=== PATIENT | female | born 1975 | race Caucasian/White ===

== ENCOUNTER 2018-11-05 16:35 | Inpatient (IN) | payer BC ==
[2018-11-05 18:00] LABS: Absolute Lymphocytes (CBC) 1.1 K/uL (0.7-4.9); Basophils % 0.3 % (0-1.3); Hematocrit 26.9 % (36.0-45.0); RBC Red Blood Cell Count 3.72 M/uL (3.86-4.86)
[2018-11-05 18:21] LABS: Potassium 3.7 mmol/L (3.5-5.1)
[2018-11-05 18:37] LABS: Bilirubin Direct 0.1 mg/dL (0-0.2); Bilirubin Total 0.3 mg/dL (0.2-1.0); Protein, Total 7.2 g/dL (6.4-8.2)
[2018-11-05 18:37] LABS: Urine Bacteria NONE SEEN /HPF (<20); Urine Culture Reflex Order NOT NEEDED; Urine RBC <5 /HPF (NONE SEEN)
[2018-11-05 18:37] LABS: Urine Blood NEGATIVE (NEG); Urine Glucose NEGATIVE (NEG); Urine Protein NEGATIVE (NEG)
--- NOTE | 2018-11-05 19:00 | RAD REPORT ---
EXAM DESCRIPTION: CTAbdomen Pelvis W Contrast - 11/05/2018 6:49 pm CLINICAL HISTORY: Abdominal pain. ABD PAIN COMPARISON: No comparisons TECHNIQUE: Biphasic CT imaging of the abdomen and pelvis was performed with 100 ml non-ionic IV cont rast. All CT scans are performed using dose optimization technique as appropriate and may include automated exposure control or mA/KV adjustment according to patient size. FINDINGS: The lung bases are clear. The liver, spleen, pancreas, adrenal glands and kidneys are within normal limits. No bowel obstruction, free air, free fluid or abscess. The appendix is dilated to 11 mm with surroun ding inflammation compatible with acute appendicitis. No evidence of significant lymphadenopathy. No suspicious bony findings. IMPRESSION: Acute appendicitis.
--- NOTE | 2018-11-05 19:03 | RAD REPORT ---
EXAM DESCRIPTION: US - Pelvis Complete - 11/05/2018 6:39 pm CLINICAL HISTORY: ABD PAIN Pelvic pain. COMPARISON: No comparisons FINDINGS: The uterus is normal in size, shape and echotexture. The uterus measures 12.0 x 6.0 x 4.9 cm. The endometrial stripe measures 12 mm, normal. Both ovaries are normal in size, shape and echotexture. The right ovary measures 3.0 x 2.1 x 1.4 cm. The left ovary measures 3.0 x 3.3 x 2.1 cm. No ovarian or parovarian lesions. No adnexal masses. Normal Doppler blood flow was demonstrated to both ovaries. No significant pelvic ascites. IMPRESSION: Unremarkable study.
--- NOTE | 2018-11-05 19:19 | ER ---
Nurse's Notes [facility] Name: Alexia Lynch Age: 43 yrs Sex: Female : 1975 Arrival Date: 11/05/2018 Time: 16:36 Bed 14 Private MD: Angus Wallace Diagnosis: Acute appendicitis Presentation: 11/05 16:55 Presenting complaint: Patient states: Lower abd pain and nausea for several days, sg nurse was supposed to get the order to infuse iron while im here because im not absorbing the iron tablets that Im taking at home. Reports nausea, denies vomiting. Transition of care: patient was not received from another setting of care. Onset of symptoms was November 05, 2018. Risk Assessment: Do you want to hurt yourself or someone else? Patient reports no desire to harm self or others. Initial Sepsis Screen: Does the patient meet any 2 criteria? No. Patient's initial sepsis screen is negative. Does the patient have a suspected source of infection? Yes: Acute abdominal pain. Care prior to arrival: None. 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 - Social history:: Smoking status: Patient/guardian denies using tobacco. - Ebola Screening: : Patient negative for fever greater than or equal to 101.5 degrees Fahrenheit, and additional compatible Ebola Virus Disease symptoms Patient denies exposure to infectious person Patient denies travel to an Ebola-affected area in the 21 days before illness onset No symptoms or risks identified at this time. Screenin:45 Abuse screen: Denies threats or abuse. Nutritional screening: No deficits noted. rb1 Tuberculosis screening: No symptoms or risk factors identified. Fall Risk None identified. Assessment: 16:45 General: Appears uncomfortable, Behavior is calm, cooperative, Reports chills for fever rb1 for 12-24 hours. Pain: Complains of pain in right lower quadrant Pain radiates to right leg Pain currently is 10 out of 10 on a pain scale. Quality of pain is described as sharp, shooting, Intermittent. Neuro: Level of Consciousness is awake, alert, obeys commands, Oriented to person, place, time, situation. Cardiovascular: Capillary refill < 3 seconds is brisk in bilateral fingers. Respiratory: Airway is patent Respiratory effort is even, unlabored, Respiratory pattern is regular, symmetrical. GI: Bowel sounds present X 4 quads. Abd is soft Abdomen is tender to palpation in right lower quadrant Guarding noted Reports nausea, vomiting. : No signs and/or symptoms were reported regarding the genitourinary system. Derm: Skin is pink, warm \T\ dry. Musculoskeletal: Range of motion: intact in all extremities. 18:00 Reassessment: Patient appears in no apparent distress at this time. No changes from rb1 previously documented assessment. 18:44 Reassessment: Patient appears in no apparent distress at this time. Patient and/or rb1 family updated on plan of care and expected duration. Pain level reassessed. Patient is alert, oriented x 3, equal unlabored respirations, skin warm/dry/pink. 19:15 Reassessment: Patient appears in no apparent distress at this time. Patient and/or jb4 family updated on plan of care and expected duration. Pain level reassessed. Patient is alert, oriented x 3, equal unlabored respirations, skin warm/dry/pink. 20:00 Reassessment: Patient appears in no apparent distress at this time. Patient and/or jb4 family updated on plan of care and expected duration. Pain level reassessed. Patient is alert, oriented x 3, equal unlabored respirations, skin warm/dry/pink. Pt transferred to surgery. Vital Signs: 16:54 Resp 20; Pulse Ox 99% on R/A; Weight 63.5 kg; Height 5 ft. 6 in. (167.64 cm); sg 16:54 BP 115 / 71; Pulse 84; Resp 17; Pulse Ox 100% on R/A; Pain 9/10; rb1 18:00 BP 100 / 58; Pulse 68; Resp 16; Pulse Ox 100% on R/A; rb1 18:44 BP 109 / 77; Pulse 82; Resp 17; Pulse Ox 100% on R/A; Pain 8/10; rb1 20:00 BP 94 / 60; Pulse 91; Resp 18; Pulse Ox 100% on R/A; jb4 16:54 Body Mass Index 22.60 (63.50 kg, 167.64 cm) ED Course: 16:36 Patient arrived in ED. as 16:39 Angus Wallace MD is Private Physician. as 16:45 Patient has correct armband on for positive identification. Bed in low position. Call rb1 light in reach. Side rails up X 1. Pulse ox on. NIBP on. 16:54 Arm band placed on. sg 16:57 Triage completed. sg 17:04 Joan Nolasco, RN is Primary Nurse. rb1 17:09 Ralf Silverman MD is Attending Physician. gs 17:44 Initial lab(s) drawn, by me, sent to lab. Inserted saline lock: 20 gauge in right dh3 antecubital area, using aseptic technique. Blood collected. 17:50 Urine collected: clean catch specimen, clear. dh3 18:43 US Pelvis Complete In Process Unspecified. EDMS 18:48 CT completed. Patient tolerated procedure well. Patient moved to CT via wheelchair. co Patient moved back from CT. 19:00 CT Abd/Pelvis - IV Contrast Only In Process Unspecified. EDMS 19:00 Report given to DELTA Pena. rb1 19:18 Davon Jorge MD is Hospitalizing Provider. gs 20:00 No provider procedures requiring assistance completed. Patient admitted, IV remains in jb4 place. 20:08 Primary Nurse role handed off by oJan Nolasco, DELTA jb4 20:08 Dainel Argueta, RN is Primary Nurse. jb4 Administered Medications: 19:39 Drug: TORadol - Ketorolac 15 mg Route: IVP; Site: right antecubital; jb4 20:00 Follow up: Response: No adverse reaction; Pain is decreased jb4 19:40 Drug: cefOXitin 1 grams {Note: Given slow IVP per pharmacy protocol.} Route: IVPB; jb4 Infused Over: 30 mins; Site: right antecubital; 19:45 Follow up: Response: No adverse reaction; IV Status: Completed infusion; IV Intake: [id number] Intake: 19:45 IV: 10ml; Total: 10ml. jb4 Outcome: 19:18 Decision to Hospitalize by Provider. gs 20:00 Admitted to OR accompanied by nurse, via stretcher, with chart. jb4 20:00 Condition: stable 20:00 Discharge instructions given to patient, Instructed on the need for admit, Demonstrated understanding of instructions. 20:08 Patient left the ED. jb4 Signatures: Dispatcher [employer] EDMS Chapo Childress, Arlen Rust RN, Rebecca, RN RN rb1 Daniel Argueta RN RN jb4 [facility] Gresham [facility] Ralf Silverman MD MD
--- NOTE | 2018-11-05 19:19 | EDPHYS ---
Physician Documentation [facility] Name: Alexia Lynch Age: 43 yrs Sex: Female : 1975 Arrival Date: 11/05/2018 Time: 16:36 Bed 14 Private MD: Angus Wallace ED Physician Ralf Silverman HPI: 11/05 19:09 This 43 yrs old Female presents to ER via Ambulatory with complaints of gs Abdominal Pain. 19:09 The patient presents with abdominal pain in the lower abdomen. Onset: The gs symptoms/episode began/occurred gradually, this morning. Associated signs and symptoms: Pertinent positives: nausea. The symptoms are described as crampy, sharp. Modifying factors: the symptoms are aggravated by nothing. Severity of pain: At its worst the pain was severe in the emergency department the pain has improved moderately. The patient has experienced similar episodes in the past, a few times. 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 - Social history:: Smoking status: Patient/guardian denies using tobacco. - Ebola Screening: : Patient negative for fever greater than or equal to 101.5 degrees Fahrenheit, and additional compatible Ebola Virus Disease symptoms Patient denies exposure to infectious person Patient denies travel to an Ebola-affected area in the 21 days before illness onset No symptoms or risks identified at this time. ROS: 19:09 All other systems are negative. gs Exam: 19:09 Head/Face: Normocephalic, atraumatic. Eyes: Pupils equal round and reactive to light, gs extra-ocular motions intact. Lids and lashes normal. Conjunctiva and sclera are non-icteric and not injected. Cornea within normal limits. Periorbital areas with no swelling, redness, or edema. ENT: Nares patent. No nasal discharge, no septal abnormalities noted. Tympanic membranes are normal and external auditory canals are clear. Oropharynx with no redness, swelling, or masses, exudates, or evidence of obstruction, uvula midline. Mucous membranes moist. Neck: Trachea midline, no thyromegaly or masses palpated, and no cervical lymphadenopathy. Supple, full range of motion without nuchal rigidity, or vertebral point tenderness. No Meningismus. Chest/axilla: Normal chest wall appearance and motion. Nontender with no deformity. No lesions are appreciated. Cardiovascular: Regular rate and rhythm with a normal S1 and S2. No gallops, murmurs, or rubs. Normal PMI, no JVD. No pulse deficits. Respiratory: Lungs have equal breath sounds bilaterally, clear to auscultation and percussion. No rales, rhonchi or wheezes noted. No increased work of breathing, no retractions or nasal flaring. Back: No spinal tenderness. No costovertebral tenderness. Full range of motion. Skin: Warm, dry with normal turgor. Normal color with no rashes, no lesions, and no evidence of cellulitis. MS/ Extremity: Pulses equal, no cyanosis. Neurovascular intact. Full, normal range of motion. Neuro: Awake and alert, GCS 15, oriented to person, place, time, and situation. Cranial nerves II-XII grossly intact. Motor strength 5/5 in all extremities. Sensory grossly intact. Cerebellar exam normal. Normal gait. 19:09 Constitutional: The patient appears alert, awake. 19:09 Abdomen/GI: Palpation: moderate abdominal tenderness, in the right lower quadrant, rebound tenderness, is not appreciated. Vital Signs: 16:54 Resp 20; Pulse Ox 99% on R/A; Weight 63.5 kg; Height 5 ft. 6 in. (167.64 cm); sg 16:54 BP 115 / 71; Pulse 84; Resp 17; Pulse Ox 100% on R/A; Pain 9/10; rb1 18:00 BP 100 / 58; Pulse 68; Resp 16; Pulse Ox 100% on R/A; rb1 18:44 BP 109 / 77; Pulse 82; Resp 17; Pulse Ox 100% on R/A; Pain 8/10; rb1 20:00 BP 94 / 60; Pulse 91; Resp 18; Pulse Ox 100% on R/A; jb4 16:54 Body Mass Index 22.60 (63.50 kg, 167.64 cm) sg MDM: 17:57 Patient medically screened. gs 19:09 Differential diagnosis: appendicitis, pancreatitis, Ureterolithiasis, urinary tract gs infection, OVARY TORSION. Data reviewed: vital signs, nurses notes, lab test result(s), radiologic studies. Response to treatment: the patient's symptoms have markedly improved after treatment, and as a result, I will discharge patient. 19:17 Counseling: I had a detailed discussion with the patient and/or guardian regarding: the gs historical points, exam findings, and any diagnostic results supporting the discharge/admit diagnosis, the need for further work-up and treatment in the hospital. Physician consultation: Davon Jorge MD. 11/05 17:14 Order name: CBC with Diff; Complete Time: 18:44 11/05 17:14 Order name: Basic Metabolic Panel; Complete Time: 18:44 11/05 17:58 Order name: Urine Microscopic Only; Complete Time: 18:44 11/05 17:58 Order name: Hepatic Function; Complete Time: 18:44 11/05 17:58 Order name: Lipase; Complete Time: 18:44 11/05 18:14 Order name: Urine Dipstick--Ancillary (enter results); Complete Time: 18:44 ar5 11/05 17:58 Order name: Urine Test (obtain specimen); Complete Time: 19:19 11/05 17:58 Order name: Urine Dipstick-Ancillary (obtain specimen); Complete Time: 19:19 11/05 18:02 Order name: US Pelvis Complete; Complete Time: 19:18 11/05 18:02 Order name: CT Abd/Pelvis - IV Contrast Only; Complete Time: 19:18 11/05 18:14 Order name: Urine --Ancillary (enter results); Complete Time: 18:44 ar5 Administered Medications: 19:39 Drug: TORadol - Ketorolac 15 mg Route: IVP; Site: right antecubital; jb4 20:00 Follow up: Response: No adverse reaction; Pain is decreased jb4 19:40 Drug: cefOXitin 1 grams {Note: Given slow IVP per pharmacy protocol.} Route: IVPB; jb4 Infused Over: 30 mins; Site: right antecubital; 19:45 Follow up: Response: No adverse reaction; IV Status: Completed infusion; IV Intake: 13pwzh3 Disposition: 11/05/18 19:18 Hospitalization ordered by Davon Jorge for Inpatient Admission. Preliminary diagnosis is Acute appendicitis. - Bed requested for Telemetry/MedSurg (Inpatient). - Status is Inpatient Admission. jb4 - Condition is Stable. - Problem is new. - Symptoms have improved. UTI on Admission? No Signatures: Dispatcher [employer] EDKY Sravanthi Evans RN RN Chapo Childress RN DELTA Daniel Argueta RN RN [facility] Ralf Silverman MD MD Corrections: (The following items were deleted from the chart) 19:28 19:18 Hospitalization Ordered by Davon Jorge MD for Inpatient Admission. Preliminary diagnosis is Acute appendicitis. Bed requested for Telemetry/MedSurg (Inpatient). Status is Inpatient Admission. Condition is Stable. Problem is new. Symptoms have improved. UTI on Admission? No. gs 20:08 19:28 11/05/2018 19:18 Hospitalization Ordered by Davon Jorge MD for Inpatient jb4 Admission. Preliminary diagnosis is Acute appendicitis. Bed requested for Telemetry/MedSurg (Inpatient). Status is Inpatient Admission. Condition is Stable. Problem is new. Symptoms have improved. UTI on Admission? No.
[2018-11-05] MEDS ORDERED: CEFOXITIN/SWI 1gm 1 GM/10 ML SYR ONE (19:26)
[2018-11-05] MEDS ORDERED: KETOROLAC 30 MG/ML INJ ONE ×2 (19:26→20:49)
[2018-11-05] MEDS ORDERED: Ringers Lactate 0 ML IV ONE (19:51)
[2018-11-05] MEDS ORDERED: FENTANYL CITR 100 MCG/2 ML ONE (19:59)
[2018-11-05] MEDS ORDERED: PROPOFOL 200 MG/20 ML VIAL IV ONE (19:59)
[2018-11-05] MEDS ORDERED: ROCURONIUM 50 MG/5 ML VIAL IV ONE (19:59)
[2018-11-05] MEDS ORDERED: LIDOCAINE 2% MPF 5 ML VIAL ONE (20:00)
[2018-11-05] MEDS ORDERED: Ringers Lactate 1,000 ML IV ONE (20:11)
[2018-11-05] MEDS ORDERED: SUCCINYLCHOLINE 20 MG/ML (10 ML) IV ONE (20:11)
[2018-11-05] MEDS ORDERED: NA CIT/CITRIC AC 30 ML ORAL UDC ONE (20:24)
[2018-11-05] MEDS ORDERED: dexAMETHasone 10 MG/ML VIAL ONE (20:49)
[2018-11-05] MEDS ORDERED: ONDANSETRON 4 MG/2 ML VIAL ONE (20:50)
[2018-11-05] MEDS ORDERED: NEOSTIGMINE 1 MG/ML -10 ML VIAL ONE (20:55)
[2018-11-05] MEDS ORDERED: GLYCOPYRROLATE 0.2 MG/ML SYR ONE (20:55)
[2018-11-05] MEDS ORDERED: SODIUM CHLORIDE 0.9% 10ML INJ IV PRN (21:22)
[2018-11-05] MEDS ORDERED: HYDROCODONE/APAP 5/325 MG TAB PO PRN (21:22)
[2018-11-05] MEDS ORDERED: ONDANSETRON 4 MG/2 ML VIAL IV PRN (21:22)
--- NOTE | 2018-11-05 21:28 | P.BOP ---
Preoperative diagnosis: acute appendicitis Postoperative diagnosis: same Primary procedure: Laparoscopic appendectomy Estimated blood loss: <5cc Specimen: harvey Findings: as above Anesthesia: General Complications: None Transferred to: Recovery Room Condition: Good
[2018-11-05 22:38] VITALS: BMI 20.9
[2018-11-06] MEDS ORDERED: CEFOXITIN SODIUM 1 GM/VIAL ONE (00:58)
[2018-11-06] MEDS ORDERED: NA CHLORIDE 0.9% 100 ML ONE ×2 (01:04→05:20)
[2018-11-06] MEDS: CEFOXITIN 1 GM in NA CHLORIDE 0.9% 100 ML IVPB SCH ×2 (01:10→06:00)
[2018-11-06] MEDS: NA CHLORIDE 0.9% 1,000 ML IV SCH ×4 (01:28→18:00)
[2018-11-06] MEDS: MORPHINE 2 MG/ML SYR IV PRN ×2 (01:34→07:40)
[2018-11-06 02:46] LABS: Urine Appearance CLEAR; Urine Bilirubin NEGATIVE (NEG); Urine Blood NEGATIVE (NEG); Urine Color YELLOW; Urine Glucose NEGATIVE (NEG); Urine Protein NEGATIVE (NEG); Urine Specific Gravity >=1.030 (1.005-1.030); Urine Urobilinogen 0.2 mg/dL (0.2-1.0); Urine pH 5.5 (5.0-7.0)
[2018-11-06 02:56] LABS: Urine Microscopic Reflex NO UMIC
--- NOTE | 2018-11-06 05:37 | OP ---
Date of Procedure: 11/05/2018 Surgeon: Davon Jorge MD Preoperative Diagnosis: Acute appendicitis. Postoperative Diagnosis: Acute appendicitis. Procedure: Laparoscopic appendectomy. Estimated Blood Loss: Less than 5 cc. Specimen: Appendix. Anesthesia: General plus local. Drains: None. Indications: This is the case of a 43-year-old patient, comes to us with acute appendicitis. Fully explained the benefits, alternatives, and risks of laparoscopic, possible open appendectomy, which in clude but are not limited to infection, bleeding, damage to adjacent structures, anesthesia complicat ion, MS, and even . She also understands this may not relieve her symptoms. She might need mor e than one surgical intervention. She understood, signed a consent. Description Of Procedure: Patient was brought to the operating room, placed in supine position. Ane sthesia was done without complication. Abdominal area was prepped and draped in a sterile fashion. Marcaine 0.5% was injected for local anesthetic, followed by sharp incision of the skin in the infrau mbilical region. Incision was carried down to fascia, which was opened under direct vision. Periton eum was encountered, opened under direct vision. Vicryl #1 placed inside the fascia. Sherry trocar was carefully introduced. No bleeding was obtained. I placed 2 more trocars, 5 mm each one of them, in the suprapubic and left lower quadrant under direct visualization. This allowed me to visualize the area of the appendix. It looked inflamed as described on the CT scan, erythematous, dilated. Th e base of the appendix seems to be spared, so we created a window in the base of the appendix and tra nsected that with an Endo WALE 45 mm 3.5, and the mesoappendix with an Endo WALE 45 mm 2.5. Further he mostasis was obtained also with the help of 5 mm hemoclips. Appendix was removed from abdominal cavi ty using an EndoCatch through the umbilical incision. The area was profusely irrigated including the pelvis. Suction was done. The area shows no bowel leak, no bleeding. So at that moment, I proceed ed to remove the trocars under direct vision, deflated pneumoperitoneum, closed the fascia with #1 Vi cryl, irrigated subcu tissue closed that with 3-0 chromic and skin in subcuticular fashion with 3-0 c hromic and Steri-Strips on top. Sponge count and instrument counts were correct. Patient tolerated the procedure well. Patient was sent to recovery in stable condition. GISELL/CASSANDRA Voice ID: [id number] Report ID: [id number]
[2018-11-06 06:12] LABS: Absolute Lymphocytes (CBC) 0.3 K/uL (0.7-4.9); Basophils % 0.1 % (0-1.3); Hematocrit 25.4 % (36.0-45.0); Lymphocytes % 6.2 % (15.3-44.8); MPV 8.1 fL (7.6-11.3); RBC Red Blood Cell Count 3.49 M/uL (3.86-4.86)
[2018-11-06 06:16] LABS: BUN Blood Urea Nitrogen 8 mg/dL (7-18); Bicarbonate 23 mmol/L (21-32); Glucose Level 142 mg/dL (74-106); Potassium 4.1 mmol/L (3.5-5.1); Sodium Level 141 mmol/L (136-145)
--- NOTE | 2018-11-06 06:34 | HP ---
Date of Admission: 11/05/2018 Diagnosis: Acute appendicitis. History Of Present Illness: This is the case of a 43-year-old patient, comes to us with right lower quadrant tenderness since yesterday. Last night, she had some pain, decided to come this afternoon t o the ER after the pain was getting worse in the right lower quadrant. Patient stated some nausea. No dysuria, hematuria, hematochezia, melena. No recent traveling out of the country. No family memb er sick at home. Last menstrual period 10/26/2018. Allergies: PENICILLIN. Medications: Oral iron. Medical History: Chronic anemia. Surgical History: Right inguinal hernia and C-sections. Family History: Noncontributory. Review of Systems: Ten points otherwise unremarkable. Physical Examination: General: Patient is awake and alert. HEENT: Pupils were equal and reactive, anicteric. Neck: Supple. Chest: Clear. Abdomen: Right lower quadrant tenderness with Rovsing sign and psoas sign positive. Breasts: Deferred. Pelvic: Deferred. Rectal: Deferred. Extremities: Good capillary refill. Neurologic: Cranial nerves 2 through 12 grossly within normal limits. Laboratory Data: Blood work shows WBC count of 8.8 with hemoglobin of 8.6 and platelets of 213. Pot assium 3.7, calcium is 9.1. UA, nitrite negative. test negative. CAT scan of abdomen and pelvis interpreted by Dr. Kapadia as dilated appendix with surrounding inflammation consistent with acu te appendicitis. Pelvic ultrasound interpreted by Dr. Kapadia as unremarkable. Assessment: This is a 43-year-old patient with acute appendicitis. The benefits, alternatives, and risks of laparoscopic, possible open appendectomy fully explained to the patient, which include, but not limited to infection, bleeding, damage to adjacent structures, anesthesia complications, negative appendix, KS, and even . She also understands this may not relieve any symptoms. She might ne ed more than one surgical intervention. The OR was called emergently. DARREN Voice ID: [id number]
[2018-11-06] MEDS ORDERED: PANTOPRAZOLE 40 MG INJ IVP SCH (09:00)
[2018-11-06 10:14] LABS: Anisocytosis 1+; Platelet Estimate ADEQ; Poikilocytosis 1+; Urine White Blood Cell Casts OK
[2018-11-06 10:18] LABS: Blood Morphology Comment NOTED (NOT SEEN)
[2018-11-06 10:38] VITALS: O2SAT 98
[2018-11-06] MEDS ORDERED: CEFOXITIN/SWI 1gm 1 GM/10 ML SYR IV SCH (12:00)
--- NOTE | 2018-11-06 15:26 | P.DS ---
Admission Date: 11/05/18 Discharge Date: 11/06/18 Disposition: ROUTINE DISCHARGE Discharge Condition: GOOD Hospital Course: unremarkable Vital Signs/Physical Exam: Temp Pulse Resp BP Pulse Ox 97.8 F 59 16 110/56 L 95 11/06/18 12:00 11/06/18 12:00 11/06/18 14:26 11/06/18 12:00 11/06/18 14:26 General: Alert, In no apparent distress, Oriented x3, Cooperative HEENT: PERRLA, EOMI, Sclerae nonicteric Neck: Supple Respiratory: Normal air movement Cardiovascular: No edema, Normal pulses Gastrointestinal: Soft and benign Musculoskeletal: No erythema, No tenderness, No warmth Integumentary: No rashes, No breakdown, No erythema, No warmth, No cyanosis Neurological: Normal speech Laboratory Data at Discharge: WBC 5.6 K/uL (4.3-10.9) D 11/06/18 05:09 Hgb 8.1 g/dL (12.0-15.0) L 11/06/18 05:09 Hct 25.4 % (36.0-45.0) L 11/06/18 05:09 Plt Count 186 K/uL (152-406) 11/06/18 05:09 Sodium 141 mmol/L (136-145) 11/06/18 05:09 Potassium 4.1 mmol/L (3.5-5.1) 11/06/18 05:09 BUN 8 mg/dL (7-18) 11/06/18 05:09 Creatinine 0.70 mg/dL (0.55-1.3) 11/06/18 05:09 Glucose 142 mg/dL (74-106) H 11/06/18 05:09 Total Bilirubin 0.3 mg/dL (0.2-1.0) 11/05/18 17:44 AST 11 U/L (15-37) L 11/05/18 17:44 ALT 18 U/L (12-78) 11/05/18 17:44 Alkaline Phosphatase 43 U/L (45-117) L 11/05/18 17:44 Lipase 185 U/L (73-393) 11/05/18 17:44 Home Medications: Cholecalciferol (Vitamin D3) [Vitamin D 5,000 IU Cap*] 5,000 units PO DAILY Codeine/APAP [Tylenol W/Codeine #3 tab] 1 tab PO Q4HP PRN #30 tab 11/06/18 Cyanocobalamin (Vitamin B-12) [Vitamin B12] 1,000 mcg PO DAILY 11/06/18 Ferrous Sulfate [High Potency Iron] 27 mg PO DAILY 11/06/18 Ondansetron HCl [Zofran] 4 mg PO Q6H PRN #10 tablet 11/06/18 Sulfamethoxazole/Trimethoprim [Bactrim Ds Tablet] 1 each PO BID #10 tablet 11/06 New Medications: Codeine/APAP [Tylenol W/Codeine #3 tab] 1 tab PO Q4HP PRN #30 tab PRN Reason: Pain Ondansetron HCl [Zofran] 4 mg PO Q6H PRN #10 tablet PRN Reason: Nausea / Vomiting Sulfamethoxazole/Trimethoprim [Bactrim Ds Tablet] 1 each PO BID #10 tablet Patient Discharge Instructions: Keep area dry for 24h then may shower. Keep sterile strips intact. Diet: AHA Activity: No lifting more than 10 lbs Followup: Davon Jorge MD [ACTIVE - CAN ADMIT] - 1 Week
[2018-11-06 18:19] VITALS: BP 94/51; TEMP 97.3
== END 2018-11-06 18:20 | disposition home or self-care (01) | DRG 343 ==
LOC: ER 16:35 → ERHOLD 19:50 → 2ND 21:26
PROVIDERS: ADMIT Surgery; ATTEND Surgery
PROC: 0DTJ4ZZ Resection of Appendix, Percutaneous Endoscopic Approach (ICD-10-PCS; principal; 2018-11-05 20:00)
DX: K35.80 Unspecified acute appendicitis (principal); Z88.0 Allergy status to penicillin
CPT/HCPCS: 36415; 74177; 76856; 80048; 80076; 81003; 81015; 81025; 83690; 85025; 88304; 96374; 96375; 99285; C9113; J0330; J0694; J1100; J2270; J2405; J2704; J2710; J3010; J7030; Q9967